=== PATIENT | male | born 1985 | race Two or more races ===

== ENCOUNTER 2023-01-23 19:11 | Emergency (ER) | payer MEDICAID ==
[~2023-01-23] VITALS: Ht 175.3 cm; Wt 77.1 kg
--- NOTE | 2023-01-23 19:16 | NUR ---
[id number] FOR ALTERED MENTAL STATUS. NARCAN NASAL X1 AND ZOFRAN 4 MG ON SCENE. TRIAGED ONLY AT THIS TIME, AWAITING ER BED PLACEMENT.
--- NOTE | 2023-01-23 19:17 | NUR ---
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
--- NOTE | 2023-01-23 20:08 | NUR ---
BLOOD WORK COLLECTED AND SENT TO LAB
--- NOTE | 2023-01-23 20:15 | NUR ---
URINE CUP OFFERED TO PATIENT FOR URINE SAMPLE
[2023-01-23 21:16] LABS: BILIRUBIN,URINE NEGATIVE (NEGATIVE); COLOR,URINE YELLOW (YELLOW); LEUKOCYTE ESTERASE ,URINE NEGATIVE (NEGATIVE); NITRITE, URINE NEGATIVE (NEGATIVE); PROTEIN,URINE 2+ mg/dl (NEGATIVE); UGLUCOSE NEGATIVE (NEGATIVE)
[2023-01-23 21:17] LABS: BASOPHILS # (AUTO) 0.1 K/uL (0.0-0.2); BASOPHILS % (AUTO) 0.8 % (0.0-2.0); EOSINOPHILS % (AUTO) 0.5 % (0.0-6.0); HEMATOCRIT 34 % (39-51); HEMOGLOBIN 10.5 g/dL (13.5-17.5); LYMPHOCYTES # (AUTO) 1.2 K/uL (0.8-4.8); LYMPHOCYTES % (AUTO) 17.7 % (20.0-44.0); MEAN CORPUSCULAR HGB CONC 31 g/dl (31.0-36.0); MEAN CORPUSCULAR VOLUME 79 fL (80-96); MONOCYTES # (AUTO) 0.6 K/uL (0.1-1.30); MONOCYTES % (AUTO) 7.9 % (2.0-12.0); NEUTROPHILS # (AUTO) 5.1 K/uL (1.8-8.9); NEUTROPHILS % (AUTO) 73.1 % (43.0-81.0); PLATELET COUNT (AUTO) 275 K/uL (150-450)
[2023-01-23 21:26] LABS: CALCIUM, SERUM 8.4 mg/dL (8.5-10.1); CARBON DIOXIDE 24 mmol/L (21-32); CHLORIDE 110 mmol/L (98-107); CREATININE 1.3 mg/dL (0.6-1.3); GLUCOSE 102 mg/dL (74-106); POTASSIUM 3.5 mmol/L (3.5-5.1); SODIUM SERUM 141 mmol/L (136-145); UREA NITROGEN, BLOOD 23 mg/dL (7-18)
[2023-01-23 21:30] LABS: BACTERIA,URINE None seen /HPF (None Seen); RBC,URINE 0-2 /HPF (0-2); SQUAMOUS EPITHELIAL CELL,UR 0-2 /HPF (None Seen); WBC,URINE 0-2 /HPF (0-3)
[2023-01-23 21:31] LABS: MUCUS,URINE Few /LPF (None Seen)
[2023-01-23 21:37] LABS: ALANINE AMINOTRANSFERASE 84 U/L (12-78); ALBUMIN 2.5 g/dL (3.4-5.0); ALKALINE PHOSPHATASE 290 U/L (46-116); ASPARTATE AMINOTRANSFERASE 81 U/L (15-37); BILIRUBIN,DIRECT 0.6 mg/dL (0.0-0.2); BILIRUBIN,TOTAL 1.3 mg/dL (0.2-1.0); TOTAL PROTEIN, SERUM 6.8 g/dL (6.4-8.2)
[2023-01-23 21:38] LABS: ALCOHOL, BLOOD < 3 mg/dL (0-0)
[2023-01-23] MEDS ORDERED: NALO4SPR BNOSTRILS ×2 (23:43)
--- NOTE | 2023-01-24 00:01 | NUR ---
PT IS AWAKE, ALERT AND OX 3. AMBULATORY WITH TEADYY GAITS. REPORTED FEELING WELL AND WILLING TO LEAVE, DENIED SI/ HI. PO INTAKE TOLERATED WELL. AWARE
--- NOTE | 2023-01-24 00:18 | NUR ---
medcally stable for D/C. Patient discharged to home in stable condition. Written and verbal after care instructions given. Patient verbalizes understanding of instruction.
[2023-01-24 02:54] VITALS: BP 158/90
== END 2023-01-24 00:20 | disposition home or self-care (01) ==
LOC: ER 19:19
DX: T40.411A Poisoning by fentanyl or fentanyl analogs, accidental (unintentional), initial encounter (principal); F15.90 Other stimulant use, unspecified, uncomplicated; I10 Essential (primary) hypertension; Y92.89 Other specified places as the place of occurrence of the external cause
CPT/HCPCS: 36415; 80048-TC; 80076-TC; 81001; 85025-TC; G0480